=== PATIENT | female | born 1970 | race African-American/Black ===

== ENCOUNTER 2023-10-14 08:34 | Observation (INO) ==
[2023-10-14 09:10] LABS: Hematocrit 31.1 % (35-45); Hemoglobin 9.5 g/dL (11.5-14.3); Mean Corpuscular Hemoglobin 16.8 pg (27-33); Mean Corpuscular Hgb Conc 30.6 g/dL (31-36); Mean Corpuscular Volume 54.8 fL (80-97); Mean Platelet Volume 8.4 fL (7.5-11.2); Platelet Count 260 10^3/uL (150-450); Red Blood Count 5.68 10^6/uL (3.63-4.92); Red Cell Distribution Width 22.4 % (12-17); White Blood Count 6.5 10^3/uL (3.8-11.8)
[2023-10-14 09:28] LABS: INR 1.03 (0.83-1.13)
[2023-10-14 09:32] LABS: Albumin 4.4 g/dL (3.2-5.2); Albumin/Globulin Ratio 1.2 (1-3); Calcium 9.4 mg/dL (8.6-10.3); Creatinine, Serum 0.97 mg/dL (0.51-0.95); Globulin 3.7 g/dL (2-4); Potassium 3.8 mmol/L (3.5-5.0); Total Bilirubin 0.4 mg/dL (0.2-1.0); Total Protein 8.1 g/dL (6.4-8.9); eGFR CKD-EPI 70.7 (>60)
[2023-10-14 09:56] LABS: ABS Basophils 0.1 10^3/uL (0.0-0.1); ABS Eosinophils 0.1 10^3/uL (0.0-0.5); ABS Lymphocytes 1.7 10^3/uL (1.0-4.8); ABS Monocytes 0.5 10^3/uL (0.0-0.9); ABS Nucleated RBC 0.01 10^3/ul; Anisocytosis 2+; Eosinophil % 1.7 %; Hypochromasia 2+; Lymphocyte % 27.1 %; Microcytosis 3+; Nucleated Red Blood Cells % 0.1 %/100WBC (0.0-0.8); Rouleaux 1+
[2023-10-14 10:33] LABS: High Sensitivity Troponin 1 Hr 10 pg/mL (<15)
[2023-10-14] MEDS: Labetalol IV 5 MG/ML 20 ml VIAL IV PUSH ONE ×2 (10:51→11:43)
[2023-10-14 12:02] LABS: HDL Cholesterol 35.9 mg/dL
[2023-10-14 12:17] LABS: TSH Ultra Thyroid Stim Horm 3.42 mcIU/mL (0.34-5.60)
[2023-10-14] MEDS: Enoxaparin 40 MG/0.4 ML SYR SUBCUT SCH (13:16)
[2023-10-14] MEDS: Fluticasone NASAL SPRAY 50MCG 16 gm SPRAY BTL BOTH NARES SCH (14:01)
[2023-10-15] MEDS: hydrALAZINE 20 mg/ml 1 ML Vial IV IV SLOW PU PRN (09:27)
[2023-10-15] MEDS ORDERED: AMINOPHYLLINE 25 MG/ML ONE (10:50)
[2023-10-15] MEDS ORDERED: Regadenoson 0.4 MG/5 ML SYRINGE ONE (11:33)
[2023-10-15] MEDS ORDERED: Ondansetron 4 mg VIAL 2 MG/ML 2 ml VIAL IV PRN (16:09)
[2023-10-15 18:04] LABS: Ferritin 2.8 ng/mL (11-307)
[2023-10-16 10:09] LABS: Hematocrit 30.4 % (35-45); Hemoglobin 9.4 g/dL (11.5-14.3); Mean Corpuscular Hemoglobin 16.8 pg (27-33); Mean Corpuscular Hgb Conc 30.7 g/dL (31-36); Mean Corpuscular Volume 54.6 fL (80-97); Mean Platelet Volume 8.5 fL (7.5-11.2); Platelet Count 256 10^3/uL (150-450); Red Blood Count 5.57 10^6/uL (3.63-4.92); Red Cell Distribution Width 21.4 % (12-17); White Blood Count 6.6 10^3/uL (3.8-11.8)
[2023-10-16] MEDS ORDERED: hydrALAZINE 20 mg/ml 1 ML Vial IV ONE (11:41)
[2023-10-16 12:32] LABS: % Iron Saturation 4 % (15-55); .Transferrin 356 mg/dL (203-362); Anion Gap 7 mmol/L (2-16); Blood Urea Nitrogen 15 mg/dL (6-24); CO2 Carbon Dioxide 27 mmol/L (22-32); Calcium 9.7 mg/dL (8.6-10.3); Chloride 105 mmol/L (101-111); Creatinine, Serum 1.02 mg/dL (0.51-0.95); Glucose 107 mg/dL (70-100); Iron < 20 ug/dL (50-212); Potassium 4.1 mmol/L (3.5-5.0); Sodium 139 mmol/L (135-145); Total Iron Binding Capacity 498 mcg/dL (250-450); Unsaturated Iron Binding 478 ug/dL; eGFR CKD-EPI 66.6 (>60)
[2023-10-16 12:46] LABS: Ferritin 3.3 ng/mL (11-307)
[2023-10-16 12:50] LABS: Folate > 20.00 ng/mL (5.90-24.80)
[2023-10-16 12:51] LABS: Vitamin B12 347 pg/mL (180-914)
[2023-10-16] MEDS ORDERED: Iron Sucrose 200 MG in NS 0.9% 100 ml BAG 100 ML IVPB ONE (16:48)
[2023-10-16] MEDS: Ferric Gluconate IV 125 MG in NS 0.9% 100 ML IVPB ONE (17:35)
[2023-10-16 18:42] VITALS: BP 136/79
[2023-10-21 17:21] LABS: Renin 4.6 ng/mL/h
== END 2023-10-16 20:02 | disposition home or self-care (01) ==
LOC: ED 08:34 → EDHOLD 08:34 → SUATTDRO 11:35 → MEDTELE 12:56
PROVIDERS: ADMIT Internal Medicine; ATTEND Hospitalist